=== PATIENT | female | born 1985 | race Caucasian/White ===

== ENCOUNTER → 2019-04-29 | Day surgery (SDC) | payer BC ==
[~2019-04-29] MED LIST: ACETAMINOPHEN 1000 MG/100 ML IV ONE; BUPIVACAINE HCL 0.5% INJ 30 ML VIAL INJ ONE; CEFAZOLIN SOD 1 GM/NS 50ML 50 ML IV ONE; DEXAMETHASONE SOD PHOS INJ 4 MG/ML VIAL ONE; FENTANYL CITRATE/PF 100MCG/2 ML INJ ONE; KETOROLAC TROMETHAMINE 30 MG/ML VIAL ONE; LIDOCAINE HCL 2% LOCAL INJ 5 ML SDV VIAL INJ ONE; MIDAZOLAM HCL 2 MG/2 ML VIAL ONE; NAPROXEN250 MG PO; ONDANSETRON HCL INJ 2MG/ML 2ML 2 MG/ML VIAL ONE; PROMETHAZINE HCL (IM) 25 MG/ML VIAL ONE; PROPOFOL IV EMULSION 10 MG/ML 20 ML VIAL ONE; SEVOFLURANE INHAL SOLN 250 ML PEN BTL ONE
[2019-04-29 09:45] VITALS: BP 111/67
--- NOTE | 2019-04-29 14:18 | Operative Report ---
DATE OF PROCEDURE: 04/29/2019 SURGEON: Beth Roach DPM PREOPERATIVE DIAGNOSES: 1. Right ankle exostosis. 2. Right metatarsal cuneiform exostosis with internal neurolysis. 3. Right ankle sprain, calcaneofibular ligament; anterior talofibular ligament rupture, right ankle. [employer] OPERATOR: Beth Roach DPM ANESTHESIA: General with a postoperative block consisting of 20 mL of 0.5% Marcaine plain mixed with 1 mL of dexamethasone phosphate. HEMOSTASIS: Pneumatic thigh tourniquet set at 350 mmHg for a total time of approximately 1 hour. MATERIALS: One MiTek G2 bone anchor, 3-0 Vicryl, 4-0 nylon. ESTIMATED BLOOD LOSS: 20 mL. PATHOLOGY: None. PROCEDURE NOTE: The patient was seen in the preoperative waiting room, where the correct procedure and site were identified. The patient was brought into the operating room and placed on the operating table in the supine position. General anesthesia was initiated. At this time, a well-padded pneumatic tourniquet was placed about the patient's right thigh. The right foot, ankle, and leg was then scrubbed, prepped, and draped in the usual aseptic manner. The right foot, ankle, leg was exsanguinated with an Esmarch bandage and a pneumatic thigh tourniquet was inflated to 350 mmHg for a total time of approximately 1 hour. Attention was directed to the anterior aspect of the patient's right ankle where the range of motion there was noted to be a bony blockage. A 5 cm linear incision was made directly over the anterior aspect of the ankle medial to the tibialis anterior tendon. The incision was carried to subcutaneous tissues them from deep or underling structures. All vital and neurovascular structures were identified, retracted medially and laterally and all bleeders were cauterized or ligated as deemed necessary. Attention was directed all the way down to the level of the ankle joint where an anterior ankle arthrotomy was performed to allow for reflection of the ankle joint. There was noted to be a dorsal exostosis with loose body to the anterior aspect of the talar dome. This was excised utilizing a rongeur as well as an osteotome and mallet and bone rasp. This was smoothed to anatomic alignment. The ankle and the joint were then put through range of motion and found to be functioning in a more proper anatomic alignment. The wound was then copiously irrigated with sterile saline. Capsule and deep tissue were reapproximated with 3-0 Vicryl, subcutaneous tissue with 3-0 Vicryl, and skin was closed using a running interlocking stitch of 4-0 nylon. Attention was directed to the dorsal aspect of the second metatarsal cuneiform joint where a 5 cm linear incision was made. The incision was carried through subcutaneous tissue them from deep or underlying structures. All vital and neurovascular structures were identified, retracted medially and laterally. All bleeders were cauterized or ligated as deemed necessary. At this time, the intermediate dorsal cutaneous nerve was easily identified and freed of all adhesions. Next, a capsulotomy was performed at the level of the second metatarsophalangeal joint, where utilizing osteotome and mallet, the exostosis was resected and passed off on the back table. The wound was then copiously irrigated with sterile saline and the skin was reapproximated utilizing simple interrupted sutures of 4-0 nylon to avoid neurological adhesions. While the nerve was exposed, 1 mL of dexamethasone phosphate was placed directly over the nerve. Next, attention was directed to the lateral aspect of the patient's right ankle where a J incision was made directly over the anterior aspect of the fibula extending inferiorly and distally. The incision was carried to the subcutaneous tissue them from deep or underlying structures. All vital and neurovascular structures were identified, retracted medially and laterally. All bleeders were cauterized or ligated as deemed necessary. Next, the ankle joint capsule as well as anterior talofibular ligament were noted to be attenuated and enlarged. A #15 blade was used to incise through the degenerative tissue. The lateral aspect of the ankle joint was viewed at this point. There was noted to be no evidence of osteochondral defect or synovitis. Next, the distal aspect of the fibula was freed of all periosteal tissues distally and anteriorly to allow for adequate placement of bone anchor. Next, per manufacture protocol, one G2 MiTek bone anchor was placed in the distal anterior aspect of the fibula, was noted to be intact. Next, utilizing the suture from the MiTek anchor, the Brostrom procedure was performed holding the foot in a dorsal and everted position and tied. Next, the Rehman modification was performed with the remainder of the suture from the G-tube bone anchor in [id number] fashion. The ankle joint was noted to be stable. The wound was then copiously irrigated with sterile saline. Capsule and deep tissue were reapproximated with 3-0 Vicryl, subcutaneous tissues were approximated with 3-0 Vicryl, and skin was closed using a running interlocking stitch of 4-0 Prolene. All incision sites were dressed with Adaptic, 4x4s, Kerlix, Webril, posterior splint, 4-inch Augustin wrap, and a 6-inch Augustin wrap. The patient tolerated the procedure and anesthesia well. The patient was transferred to the postoperative recovery room with vital signs stable and vascular status intact. The patient is monitored there for a short period time before being sent home with the following written and oral instructions: 1. Keep the dressing clean, dry, and intact. 2. The patient is to remain nonweightbearing to the right lower extremity to avoid any ambulation until being seen in the office. 3. The patient is given office number and instructed to contact us if any problems arise. Dictated by Beth Roach DPM S GEENA Ponce (Charley)/MODL /[id number]
== END | disposition home or self-care (01) ==
LOC: OR 05:23
PROVIDERS: ATTEND Podiatrist Foot & Ankle Surgery
DX: M77.51 Other enthesopathy of right foot and ankle (principal); J45.909 Unspecified asthma, uncomplicated; K58.9 Irritable bowel syndrome, unspecified; K57.90 Diverticulosis of intestine, part unspecified, without perforation or abscess without bleeding; S93.411A Sprain of calcaneofibular ligament of right ankle, initial encounter; X58.XXXA Exposure to other specified factors, initial encounter; F17.210 Nicotine dependence, cigarettes, uncomplicated; Z88.6 Allergy status to analgesic agent
CPT/HCPCS: 27696; 28100; 28104; 81025; C1713; J0131; J0690; J1100; J1885; J2001; J2250; J2405; J2550; J2704; J3010